=== PATIENT | female | born 1980 | race Caucasian/White ===

== ENCOUNTER 2021-09-18 19:50 | Inpatient (IN) | payer OTHER ==
[~2021-09-18] VITALS: Ht 162.6 cm; Wt 111.6 kg
[2021-09-18 20:43] LABS: HEMOGLOBIN 10.9 gm/dl (12.3-15.3); RED BLOOD COUNT 3.79 M/UL (4.00-5.10); WHITE BLOOD COUNT 15.5 K/UL (4.5-11.0)
[2021-09-18 21:15] LABS: BUN/CREATININE RATIO 10 (0-10)
[2021-09-19] MEDS ORDERED: PROAIR HFA8.5 GM INH (10:38)
[2021-09-19] MEDS ORDERED: BACLOFEN10 MG PO (10:39)
[2021-09-19] MEDS ORDERED: IPRAT-ALBUT 0.5-3 ML INH (10:39)
[2021-09-19] MEDS ORDERED: METOPROLOL SUCC25 MG PO (10:39)
[2021-09-19] MEDS ORDERED: PROTONIX 40 MG40 M1 PO (10:40)
[2021-09-19] MEDS ORDERED: DICLOFENAC SODI50 MG PO (10:40)
[2021-09-19] MEDS ORDERED: ASPIRIN81 MG PO (10:40)
[2021-09-19] MEDS ORDERED: CETIRIZINE HCL10 MG PO (10:41)
[2021-09-20 04:31] LABS: BUN/CREATININE RATIO 8 (0-10)
[2021-09-20 04:34] LABS: RED BLOOD COUNT 3.55 M/UL (4.00-5.10); WHITE BLOOD COUNT 12.3 K/UL (4.5-11.0)
[2021-09-21 07:19] LABS: HEMOGLOBIN 10.2 gm/dl (12.3-15.3); RED BLOOD COUNT 3.65 M/UL (4.00-5.10); WHITE BLOOD COUNT 11.3 K/UL (4.5-11.0)
[2021-09-21 08:00] LABS: BUN/CREATININE RATIO 10 (0-10)
[2021-09-22 06:32] LABS: BUN/CREATININE RATIO 12 (0-10)
[2021-09-23] MEDS ORDERED: AUGMENTIN 875-1 EACH PO (13:50)
== END 2021-09-23 15:30 | disposition home or self-care (01) | DRG 603 ==
LOC: ER1 19:50 → MED SURG 4 09-19 01:34 → CDU 09-19 01:34 → MED SURG 4 09-19 15:17
PROVIDERS: Internal Medicine Infectious Disease; Physician Assistant; Surgery; ADMIT Internal Medicine
PROC: 0J9B0ZZ Drainage of Perineum Subcutaneous Tissue and Fascia, Open Approach (ICD-10-PCS; principal; 2021-09-21 10:40)
DX: L02.31 Cutaneous abscess of buttock (principal); L03.315 Cellulitis of perineum; E66.2 Morbid (severe) obesity with alveolar hypoventilation; Z68.41 Body mass index [BMI] 40.0-44.9, adult; L03.317 Cellulitis of buttock; J45.909 Unspecified asthma, uncomplicated; K21.9 Gastro-esophageal reflux disease without esophagitis; R19.7 Diarrhea, unspecified; T36.0X5A Adverse effect of penicillins, initial encounter; F17.210 Nicotine dependence, cigarettes, uncomplicated; Z99.81 Dependence on supplemental oxygen; Z82.49 Family history of ischemic heart disease and other diseases of the circulatory system; Z83.3 Family history of diabetes mellitus; Z88.5 Allergy status to narcotic agent; Z79.899 Other long term (current) drug therapy; Z79.82 Long term (current) use of aspirin
CPT/HCPCS: 36415; 80048; 80053; 80202; 83036; 83605; 83735; 84439; 84443; 84703; 85025; 85652; 86140; 87040; 87070; 87077; 87186; 87205; 94640; 94760; 96374; 99284; J1335; J1650; J2250; J2543; J2704; J3010; J3370; J7050; J7070; J7120; Q9967; U0002